=== PATIENT | female | born 1950 | race Two or more races ===

== ENCOUNTER 2018-01-19 18:59 | Emergency (ER) | payer SELFPAY ==
--- NOTE | 2018-01-19 19:04 | EDM.PDOC ---
ED HPI GENERAL MEDICAL PROBLEM - General Chief Complaint: Gastrointestinal Problem Stated Complaint: NAUSEA AND VOMITING Time Seen by Provider: 01/19/18 19:00 Source of Information: Reports: Patient, EMS, Family History Limitations: Reports: No Limitations - History of Present Illness INITIAL COMMENTS - FREE TEXT/NARRATIVE: HISTORY AND PHYSICAL: History of present illness: Patient is a 67-year-old female who presents to the emergency room with complaints of weakness, nausea and vomiting for one hour. The patient states she was outside with her daughter when they both started to smelled gas. They state they returned to their apartment building when symptoms started to present. They called EMS for transport and evaluation. [facility] has been on scene and assessed for gas leaks/carbon monoxide and were unable to identify. She denies any fever, chills, chest pain, shortness of breath or cough. Denies any abdominal pain, diarrhea, constipation or dysuria. She denies having any recent food or triggers that would cause her symptoms (that would also have her daughter have the same symptoms). EMS gave 4mg Zofran IV [employer]. Review of systems: As per history of present illness and below otherwise all systems reviewed and negative. Past medical history: As per history of present illness and as reviewed below otherwise noncontributory. Surgical history: As per history of present illness and as reviewed below otherwise noncontributory. Social history: No reported history of drug or alcohol abuse. Family history: As per history of present illness and as reviewed below otherwise noncontributory. Physical exam: General: Well-developed and well-nourished 67-year-old female. Alert and oriented. Nontoxic appearing and in no acute distress. HEENT: Atraumatic, normocephalic, pupils equal and reactive bilaterally, negative for conjunctival pallor or scleral icterus, mucous membranes moist, throat clear, neck supple, nontender, trachea midline. No drooling or trismus noted. No meningeal signs Lungs: Clear to auscultation, breath sounds equal bilaterally, chest nontender. Heart: S1S2, regular rate and rhythm without overt murmur Abdomen: Soft, nondistended, nontender. Negative for masses or hepatosplenomegaly. Negative for costovertebral tenderness. Pelvis: Stable nontender. Genitourinary: Deferred. Rectal: Deferred. Skin: Intact, warm, dry. No lesions or rashes noted. Extremities: Atraumatic, negative for cords or calf pain. Neurovascular unremarkable. Neuro: Awake, alert, oriented. Cranial nerves II through XII unremarkable. Cerebellum unremarkable. Motor and sensory unremarkable throughout. Exam nonfocal. Notes: Labs are unremarkable. EKG within normal limits. After the IV fluids the patient states she feels much improved. She would like to be discharged to home. Vital signs are stable. Supportive care measures were reviewed and discussed. She denies any further questions or concerns at this time. Diagnostics: CBC, CMP, UA, Drug Screen, Carboxyhemaglobin Therapeutics: Normal Saline Prescription: None Impression: Nausea and Vomiting Plan: 1. Get plenty of rest and adequate hydration over the next 24 hours. Robins diet , advance as tolerated. 2. Tylenol and/or ibuprofen as needed for pain management. 3. Eloped with her primary care provider in the next 1-2 days. Return to the ED as needed and as discussed. Definitive disposition and diagnosis as appropriate pending reevaluation and review of above. ED ROS GENERAL - Review of Systems Review Of Systems: ROS reveals no pertinent complaints other than HPI. ED EXAM, GI/ABD - Physical Exam Exam: See Below (See dictation) Course - Vital Signs Last Recorded V/S: Last Vital Signs Temp 97.3 F 01/19/18 19:00 Pulse 85 01/19/18 19:00 Resp 18 01/19/18 19:00 BP 133/89 01/19/18 19:00 Pulse Ox 87 L 01/19/18 19:00 - Orders/Labs/Meds Orders: Active Orders 24 hr Category Date Time Status EKG Documentation Completion [RC] STAT Care 01/19/18 19:05 Active Labs: Laboratory Tests 01/19/18 01/19/18 01/19/18 Range/Units 19:21 19:21 19:21 WBC 7.75 (4.0-11.0) K/uL RBC 4.49 (4.30-5.90) M/uL Hgb 13.4 (12.0-16.0) g/dL Hct 40.1 (36.0-46.0) % MCV 89.3 (80.0-98.0) fL MCH 29.8 (27.0-32.0) pg MCHC 33.4 (31.0-37.0) g/dL RDW Std Deviation 44.1 (28.0-62.0) fl RDW Coeff of Yonas 14 (11.0-15.0) % Plt Count 208 (150-400) K/uL MPV 10.70 (7.40-12.00) fL Neut % (Auto) 45.5 L (48.0-80.0) % Lymph % (Auto) 40.4 H (16.0-40.0) % [place] % (Auto) 10.3 (0.0-15.0) % Eos % (Auto) 3.4 (0.0-7.0) % Baso % (Auto) 0.4 (0.0-1.5) % Neut # (Auto) 3.5 (1.4-5.7) K/uL Lymph # (Auto) 3.1 H (0.6-2.4) K/uL [place] # (Auto) 0.8 (0.0-0.8) K/uL Eos # (Auto) 0.3 (0.0-0.7) K/uL Baso # (Auto) 0.0 (0.0-0.1) K/uL Nucleated RBC % 0.0 /100WBC Nucleated RBCs # 0 K/uL ABG Carboxyhemoglobin 1.5 (0-15) % Sodium 138 (136-145) mmol/L Potassium 3.6 (3.5-5.1) mmol/L Chloride 104 (98-107) mmol/L Carbon Dioxide 27.1 (21.0-32.0) mmol/L BUN 14 (7.0-18.0) mg/dL Creatinine 0.5 L (0.6-1.0) mg/dL Est Cr Clr Drug Dosing 96.86 mL/min Estimated GFR (MDRD) > 60.0 ml/min Glucose 97 (74-106) mg/dL Calcium 9.0 (8.5-10.1) mg/dL Total Bilirubin 0.4 (0.2-1.0) mg/dL AST 24 (15-37) IU/L ALT 43 (14-63) IU/L Alkaline Phosphatase 75 (46-116) U/L Total Protein 7.2 (6.4-8.2) g/dL Albumin 3.6 (3.4-5.0) g/dL Globulin 3.6 H (2.0-3.5) g/dL Albumin/Globulin Ratio 1.0 L (1.3-2.8) Meds: Medications Discontinued Medications Generic Name Dose Route Start Last Admin Trade Name Nisha PRN Reason Stop Dose Admin Sodium Chloride 1,000 mls @ 999 mls/hr 01/19/18 19:05 01/19/18 19:29 Normal Saline IV 01/19/18 20:05 999 mls/hr STAT ONE Administration Departure - Departure Time of Disposition: 20:17 Disposition: Home, Self-Care 01 Clinical Impression: Nausea and vomiting Qualifiers: Vomiting type: unspecified Vomiting Intractability: non-intractable Qualified Code(s): R11.2 - Nausea with vomiting, unspecified - Discharge Information Instructions: Nausea and Vomiting, Adult, [id number] Forms: ED Department Discharge Additional Instructions: The following information is given to patients seen in the emergency department who are being discharged to home. This information is to outline your options for follow-up care. We provide all patients seen in our emergency department with a follow-up referral. The need for follow-up, as well as the timing and circumstances, are variable depending upon the specifics of your emergency department visit. If you don't have a primary care physician on staff, we will provide you with a referral. We always advise you to contact your personal physician following an emergency department visit to inform them of the circumstance of the visit and for follow-up with them and/or the need for any referrals to a consulting specialist. The emergency department will also refer you to a specialist when appropriate. This referral assures that you have the opportunity for follow-up care with a specialist. All of these measure are taken in an effort to provide you with optimal care, which includes your follow-up. Under all circumstances we always encourage you to contact your private physician who remains a resource for coordinating your care. When calling for follow-up care, please make the office aware that this follow-up is from your recent emergency room visit. If for any reason you are refused follow-up, please contact the [facility] Emergency Department at and asked to speak to the emergency department charge nurse. [facility] Primary Care [address] [place] [id number] 1. Get plenty of rest and adequate hydration over the next 24 hours. Robins diet , advance as tolerated. 2. Tylenol and/or ibuprofen as needed for pain management. 3. Eloped with her primary care provider in the next 1-2 days. Return to the ED as needed and as discussed. - My Orders Last 24 Hours: My Active Orders 01/19/18 19:05 EKG Documentation Completion [RC] STAT - Assessment/Plan Last 24 Hours: My Active Orders 01/19/18 19:05 EKG Documentation Completion [RC] STAT
[2018-01-19] MEDS ORDERED: Sodium Chloride 0.9% 1,000 ML IV ONE (19:05)
[2018-01-19 19:53] LABS: CHLORIDE,CL 104 mmol/L (98-107); SODIUM,NA 138 mmol/L (136-145)
== END 2018-01-19 20:35 | disposition home or self-care (01) ==
LOC: MW.ED 18:59
DX: R11.2 Nausea with vomiting, unspecified (principal)
CPT/HCPCS: 36415; 80053; 82375; 85025; 93005; 96360; 99283; J7040

== ENCOUNTER 2021-04-27 20:33 | Emergency (ER) | payer MEDICAID, OTHER, SELFPAY ==
--- NOTE | 2021-04-27 23:36 | CR ---
INDICATION: Cough for 8 days TECHNIQUE: Chest radiograph 1 view COMPARISON: None FINDINGS: The sensitivity and specificity of the exam are moderately limited by the patient`s body habitus. Mediastinum: The mediastinum is normal in appearance. The heart silhouette is normal in size and morphology. Lung: Both lungs are unremarkable in appearance with small lung volumes. No sign of pleural effusion seen. No pneumothorax is identified. Bone and Soft tissue: Unremarkable for age. IMPRESSION: 1. No acute cardiopulmonary disease is seen. Dictated by: Calvin Gandhi MD @ 04/27/2021 23:35:01 (Electronically Signed)
[2021-04-27 23:46] LABS: CORONAVIRUS COVID-19 NAA NEGATIVE (NEGATIVE); INFLUENZA A NAA NEGATIVE (NEGATIVE); INFLUENZA B NAA NEGATIVE (NEGATIVE)
[2021-04-28] MEDS ORDERED: Amoxicillin/Clavulanate K 875-125 MG Tab PO ONE (00:43)
--- NOTE | 2021-04-28 00:45 | EDM.PDOC ---
ED HPI GENERAL MEDICAL PROBLEM - General Chief Complaint: Respiratory Problem Stated Complaint: COUGH,COVID SYMPTOMS Time Seen by Provider: 04/27/21 22:55 - History of Present Illness INITIAL COMMENTS - FREE TEXT/NARRATIVE: All conversations had with mdm sr in presence CHIEF COMPLAINT(S): Cough HISTORY OF PRESENT ILLNESS: This is a 71-year-old woman with a past medical history of diabetes mellitus and hypertension who presents to the emergency department with a chief complaint of cough. The patient states that for the last 7 days she has been experiencing a fever and intermittent cough. She stat es that her cough was initially nonproductive however is now productive of yellowish sputum. She states that she has had a runny nose with significant congestion which is now turned green discharge. She denies any headache, blurry vision or earache. She states that she does experience some shortness of breath but only when she coughs. She denies any recent travel, recent surgery, prior history of DVT or PE. REVIEW OF SYSTEMS: Constitutional: Positive for fever Eyes: Denies eye pain Ears, Nose, Mouth, & Throat: Positive for sinus congestion. Denies earache cardiovascular: Denies chest pain Respiratory: Positive for productive cough. Denies shortness of breath Gastrointestinal: Denies Nausea, vomiting, diarrhea, hematochezia. Genitourinary: Denies hematuria Skin:Denies a rash MSK: Denies joint pain Neurological: Denies blurred vision Psychiatric: Denies depression PAST MEDICAL HISTORY: As per history of present illness and as reviewed below otherwise noncontributory. SURGICAL HISTORY: As per history of present illness and as reviewed below otherwise noncontributory. SOCIAL HISTORY: As per history of present illness and as reviewed below otherwise noncontributory. FAMILY HISTORY: As per history of present illness and as reviewed below otherwise noncontributory. EXAMINATION OF ORGAN SYSTEMS/BODY AREAS: Constitutional: Blood pressure is 135/85, heart rate 88, respiratory 20 with an oxygen saturation 96% on room air. Temperature 36.3 General: Well-appearing elderly woman who is in no acute distress Psychiatric: Appropriate mood and affect. Eyes: No scleral icterus or conjunctival erythema ENMT: Moist mucous membranes. No pharyngeal erythema bilateral nasal turbinates with yellow drainage. Bilateral tympanic membranes without any bulging erythema Cardiovascular: Regular, rate, and rhythm. No gallops, murmurs, or rubs. Bilateral upper extremity pulses symmetric and intact. No peripheral edema. No JVD. Respiratory: Lungs clear to auscultation bilaterally. No wheezes, rales, or rhonchi. Gastrointestinal: Soft, non-tender, non-distended. Normoactive bowel sounds Genitourinary: No suprapubic tenderness Musculoskeletal: Normal range of motion. Skin: No lesions or abrasions. Neurological: Alert, GCS 15 MEDICAL DECISION MAKING AND COURSE IN THE ED WITH INTERPRETATION/REVIEW OF DIAGNOSTIC STUDIES: This is a 71-year-old woman with a past medical history diabetes mellitus and hypertension who comes to the emergency department with 1 week of cough and increased nasal congestion and drainage which has changed in color. At this time the patient's vitals are completely normal. Obtain Covid, influenza and a chest x-ray to evaluate for pneumonia. The patient overall appears well. I do not believe any therapeutics are indicated at this time. Laboratory: COVID is negative. Influenza is negative. The radiological images were viewed by myself along with reading the report from the radiologist. Chest x-ray does not reveal any acute cardiopulmonary process. Given the patient's vital signs are normal and the work-up thus far is negative I did discuss the use of antibiotics for sinus infection. I did discuss strict return precautions with the patient. She was amenable to discharge and had no further questions DISPOSITION: The patient was discharged home in stable condition. The patient will follow up with primary care in 3 to 5 days CONDITION: Fair PROCEDURES: None FINAL IMPRESSION(S)/DIAGNOSES: 1. Acute bacterial sinusitis 2. Acute viral upper respiratory infection Young Moura M.D. - Related Data Allergies Allergy/AdvReac Type Severity Reaction Status Date / Time No Known Allergies Allergy Verified 04/27/21 23:08 Home Meds: Home Meds Losartan [Cozaar] 1 tab PO DAILY 01/19/18 [History] Amoxicillin/Potassium Clav [Augmentin 875-125 Tablet] 1 each PO BID #13 tablet 04/28/21 [Rx] Past Medical History Cardiovascular History: Reports: Hypertension Genitourinary History: Reports: Other (See Below) Other Genitourinary History: Cervical CA Musculoskeletal History: Reports: Other (See Below) Other Musculoskeletal History: Back surgery Oncologic (Cancer) History: Reports: Cervix Social & Family History - Family History Family Medical History: No Pertinent Family History - Tobacco Use Second Hand Smoke Exposure: No - Caffeine Use Caffeine Use: Reports: None - Recreational Drug Use Recreational Drug Use: No ED ROS GENERAL - Review of Systems Review Of Systems: See Below ED EXAM, GENERAL - Physical Exam Exam: See Below Course - Vital Signs Last Recorded V/S: Last Vital Signs Temp 36.3 C 04/27/21 23:06 Pulse 86 04/28/21 01:01 Resp 20 04/27/21 23:06 BP 132/78 04/28/21 01:01 Pulse Ox 97 04/28/21 01:01 - Orders/Labs/Meds Labs: Laboratory Tests 04/27/21 Range/Units 23:00 Influenza Type A RNA NEGATIVE (NEGATIVE) Influenza Type B RNA NEGATIVE (NEGATIVE) SARS-CoV-2 RNA (KAILEY) NEGATIVE (NEGATIVE) Meds: Medications Discontinued Medications Generic Name Dose Route Start Last Admin Trade Name Freq PRN Reason Stop Dose Admin Amoxicillin/Clavulanate Potassium 1 tab 04/28/21 00:43 04/28/21 00:47 Amoxicillin/Clavulanate K 875-125 Mg Tab PO 04/28/21 00:44 1 tab ONETIME ONE Administration Departure - Departure Time of Disposition: 00:44 Disposition: Home, Self-Care 01 Condition: Fair Clinical Impression: Sinusitis, Viral URI with cough - Discharge Information *PRESCRIPTION DRUG MONITORING PROGRAM REVIEWED*: No *COPY OF PRESCRIPTION DRUG MONITORING REPORT IN PATIENT BREE: No Prescriptions: Amoxicillin/Potassium Clav [Augmentin 875-125 Tablet] 1 each PO BID #13 tablet Instructions: Viral Respiratory Infection, [id number], Sinusitis, Adult, [id number] Referrals: [facility] [Primary Care Provider] - Forms: ED Department Discharge Additional Instructions: You were evaluated today on an emergent basis. At this time all of your labs including Covid and influenza were negative. The chest x-ray that we took did not reveal any evidence of pneumonia. At this time I do believe you are experiencing a sinus infection. We will treat with Augmentin twice a day for the next 7 days. As discussed please use honey with tea for your cough. You may use Tylenol and Motrin alternating for fever and pain relief. If you have any worsening symptoms such as worsening chest pain or shortness of breath please return to the emergency department. Otherwise follow-up with your primary care physician in 3 to 5 days Please use: Tylenol 500-1000mg every 6 hours (DO NOT TAKE MORE THAN 4000mg in 1 day) Ibuprofen 400mg every 6 hours (Take with food as it can cause ulcers, GI upset) Example schedule: 8:00 AM (Tylenol 500-1000mg) 11:00 AM (Ibuprofen 400mg) 2:00 PM (Tylenol 500-1000mg) 5:00 PM (Ibuprofen 400mg) [facility] Primary [facility] [address], [place] [address] [facility] [address] [place] [id number] The patient is informed of any results of their evaluation and diagnostic workup and all questions are answered. They are given discharge instructions and return precautions. The patient is stable for discharge. The patient states they understand and agree with the plan and that they will return if their symptoms get worse or if they have any new concerns. The following information is given to patients seen in the emergency department who are being discharged to home. This information is to outline your options for follow-up care. We provide all patients seen in our emergency department with a follow-up referral. The need for follow-up, as well as the timing and circumstances, are variable depending upon the specifics of your emergency department visit. If you don't have a primary care physician on staff, we will provide you with a referral. We always advise you to contact your personal physician following an emergency department visit to inform them of the circumstance of the visit and for follow-up with them and/or the need for any referrals to a consulting specialist. The emergency department will also refer you to a specialist when appropriate. This referral assures that you have the opportunity for follow-up care with a specialist. All of these measure are taken in an effort to provide you with optimal care, which includes your follow-up. Under all circumstances we always encourage you to contact your private physi rand who remains a resource for coordinating your care. When calling for follow- up care, please make the office aware that this follow-up is from your recent emergency room visit. If for any reason you are refused follow-up, please contact the [facility] Emergency Department at and asked to speak to the emergency department charge nurse. Sepsis Event Note (ED) - Evaluation Sepsis Screening Result: No Definite Risk
== END 2021-04-28 01:01 | disposition home or self-care (01) ==
LOC: MW.ED 20:33
DX: J06.9 Acute upper respiratory infection, unspecified (principal); J01.90 Acute sinusitis, unspecified; B96.89 Other specified bacterial agents as the cause of diseases classified elsewhere; I10 Essential (primary) hypertension; Z79.899 Other long term (current) drug therapy; Z20.822 Contact with and (suspected) exposure to COVID-19
CPT/HCPCS: 0240U; 71045; 99283; A9270

== ENCOUNTER 2022-06-14 16:09 | Emergency (ER) | payer MEDICARE, MEDICAID ==
[2022-06-14] MEDS: Lidocaine 1% 50 ML MDV ONE ×4 (17:10→18:24)
[2022-06-14] MEDS: Lidocaine 1% 5 ML VIAL INJECT ONE ×2 (18:22→18:23)
[2022-06-14] MEDS ORDERED: Lidocaine 1% 5 ML VIAL INJECT ONE (18:36)
== END 2022-06-14 17:30 | disposition home or self-care (01) ==
LOC: MW.ED 16:09
DX: M77.8 Other enthesopathies, not elsewhere classified (principal); I10 Essential (primary) hypertension; Z79.899 Other long term (current) drug therapy
CPT/HCPCS: 20552; 99283; J2001; J3490